=== PATIENT | female | born 1955 | race Hispanic/Latino ===

== ENCOUNTER → 2020-10-17 | Day surgery (SDC) | payer MEDICARE ==
[2020-10-13 16:04] LABS: BASOPHILS # (AUTO) 0.1 (0.0-0.1); BASOPHILS % 0.9 % (0.0-1.0); EOSINOPHILS # (AUTO) 0.3 (0.0-0.4); EOSINOPHILS % 3.8 % (0.0-6.0); HEMATOCRIT 40.8 % (34.2-44.1); HEMOGLOBIN 13.4 g/dL (12.0-16.0); LYMPHOCYTES # (AUTO) 1.9 (1.0-3.2); LYMPHOCYTES % 24.8 % (18.0-39.1); MEAN CORPUSCULAR HEMOGLOBIN 31.5 pg (28-32); MEAN CORPUSCULAR HGB CONC 32.8 g/dL (31-35); MONOCYTES # (AUTO) 0.6 (0.2-0.8); MONOCYTES % 8.6 % (4.4-11.3); NEUTROPHILS # (AUTO) 4.6 (2.1-6.9); NEUTROPHILS % 61.4 % (38.7-80.0); PLATELET COUNT 128 x10e3/uL (140-360); RED BLOOD COUNT 4.25 x10e6/uL (3.6-5.1); RED CELL DISTRIBUTION WIDTH 13.4 % (11.7-14.4)
[2020-10-13 16:12] LABS: INR 0.99; PARTIAL THROMBOPLASTIN TIME 26.4 seconds (23.8-35.5); PROTHROMBIN TIME 13.6 seconds (11.9-14.5)
[2020-10-13 16:19] LABS: ALANINE AMINOTRANSFERASE 80 IU/L (0-55); ALBUMIN 3.9 g/dL (3.5-5.0); ALBUMIN/GLOBULIN RATIO 0.9 (0.8-2.0); ALKALINE PHOSPHATASE 97 IU/L (40-150); ANION GAP 12.7 mmol/L (8-16); BLOOD UREA NITROGEN 16 mg/dL (7-26); BUN/CREATININE RATIO 20 (6-25); CALCIUM 9.4 mg/dL (8.4-10.2); CARBON DIOXIDE 25 mmol/L (22-29); CHLORIDE 108 mmol/L (98-107); CREATININE, SERUM 0.81 mg/dL (0.57-1.11); EST GLOMERULAR FILTRATION RATE > 60 ML/MIN (60-); GLUCOSE 84 mg/dL (74-118); POTASSIUM 4.7 mmol/L (3.5-5.1); SODIUM 141 mmol/L (136-145)
--- NOTE | 2020-10-13 16:29 | Diagnostic Imaging Report ---
Exam: CHEST 2 VIEWS Date: 10/13/2020 4:25 PM INDICATION: ^[id number] ^1600 ^PRE OP Comparison: None FINDINGS: Lines/Tubes:None Lungs:The lungs are well inflated. No focal consolidation or pulmonary edema. Pleura:No pleural effusion. No pneumothorax. Heart/Mediastinum:The cardiomediastinal silhouette is normal in size and contour. Atherosclerotic calcifications of the aortic arch are noted. Bones/Soft Tissues: No acute osseous abnormality. Upper abdomen: Cholecystectomy clips are noted in the right upper quadrant. No free air is identified in the upper abdomen. IMPRESSION: Negative for acute intrathoracic process. Signed by: Lev Agosto MD on 10/13/2020 4:26 PM
[~2020-10-17] MED LIST: AMLODIPINE BESYL5 MG PO; BUPIVACAINE 0.25% 30ML SDV ONE; BUSPIRONE HCL5 MG PO; CEFAZOLIN SOD 1 GM/NS 50ML 50 ML IV ONE; FENTANYL CITRATE/PF 100MCG/2 ML INJ ONE; LIDOCAINE 1% W/EPINEPHRINE 20 ML VIAL ONE; LORAZEPAM PO; MIDAZOLAM HCL 2 MG/2 ML VIAL ONE; PROTONIX20 MG PO; TEMAZEPAM15 MG PO; ULTRAM50 MG PO
--- NOTE | 2020-10-17 07:46 | Operative Report ---
DATE OF PROCEDURE: 10/17/2020 SURGEON: Mir Damon MD DIRECTOR OF PARKS AND RECREATION: Raj Restrepo PA-C PREOPERATIVE DIAGNOSIS: Left elbow recurrent olecranon bursitis. POSTOPERATIVE DIAGNOSIS: Left elbow recurrent olecranon bursitis. PROCEDURE: Excision left elbow olecranon bursa. INDICATIONS: The patient is a 65-year-old lady, who has recurrent left olecranon bursitis. The findings and options have been discussed. She would like to have this surgically removed. The risks and benefits were explained. All of her questions were answered. She states she understands and wishes to proceed. DESCRIPTION OF PROCEDURE: The patient was brought to the operating room and placed under general anesthetic. Her left upper extremity was prepped and draped in a sterile manner. A preoperative time-out was performed. The extremity was exsanguinated and a proximal tourniquet was inflated to 250 mmHg. An incision was made directly over the left elbow olecranon bursa. The bursal sac was carefully dissected out. This was densely adherent to the triceps insertion and the undersurface of the skin. Clear yellow fluid was decompressed from the bursa. The bursa was circumferentially excised and sent to pathology. The wound was thoroughly irrigated. The skin was closed with subcuticular Vicryl and a running nylon stitch. A sterile bandage and a posterior splint were applied. There was no blood loss and all needle and sponge counts were correct. Mir Damon MD DR/OMAR /[id number]
[2020-10-17 08:25] VITALS: BP 128/74
== END | disposition home or self-care (01) ==
LOC: OR 05:24
PROVIDERS: ATTEND Specialist
DX: M70.22 Olecranon bursitis, left elbow (principal); I10 Essential (primary) hypertension; K21.9 Gastro-esophageal reflux disease without esophagitis; R06.02 Shortness of breath; F41.9 Anxiety disorder, unspecified; Z72.0 Tobacco use; Z88.6 Allergy status to analgesic agent; Z01.810 Encounter for preprocedural cardiovascular examination; Z01.812 Encounter for preprocedural laboratory examination; Z01.818 Encounter for other preprocedural examination; Z20.828 Contact with and (suspected) exposure to other viral communicable diseases; Z86.19 Personal history of other infectious and parasitic diseases
CPT/HCPCS: 24105; 36415; 71046; 80053; 85025; 85610; 85730; 88304; 93005; J0690; J2250; J3010; U0002

== ENCOUNTER 2021-01-02 05:34 | Observation (INO) | payer MEDICARE ==
[~2021-01-02] VITALS: Ht 154.9 cm; Wt 51.3 kg
[~2021-01-02 05:34] MED LIST changes: -BUPIVACAINE 0.25% 30ML SDV ONE; -CEFAZOLIN SOD 1 GM/NS 50ML 50 ML IV ONE; -FENTANYL CITRATE/PF 100MCG/2 ML INJ ONE; -LIDOCAINE 1% W/EPINEPHRINE 20 ML VIAL ONE; +LOSARTAN POTAS100 MG PO; -MIDAZOLAM HCL 2 MG/2 ML VIAL ONE
[2021-01-02] MEDS ORDERED: GABAPENTIN 300 MG CAP ONE (06:23)
[2021-01-02] MEDS ORDERED: CEFAZOLIN SOD 1 GM/NS 50ML 100 ML IV ONE (06:23)
[2021-01-02] MEDS ORDERED: DEXAMETHASONE SOD PHOS 10 MG/1 ML VIAL ONE (06:23)
[2021-01-02] MEDS ORDERED: CELECOXIB 200 MG CAP ONE (06:23)
[2021-01-02] MEDS ORDERED: BUPIVACAINE 7.5MG/ML /DEXTROSE 82.5MG/ML 2 ML AMP INJ ONE (06:24)
[2021-01-02] MEDS ORDERED: SODIUM CHLORIDE 0.9% 500ML 500 ML ONE (06:34)
[2021-01-02] MEDS ORDERED: VANCOMYCIN HCL 1,000 MG ONE (06:34)
[2021-01-02] MEDS ORDERED: TRANEXAMIC ACID 1,000 MG/10 ML ML ONE (06:35)
[2021-01-02] MEDS ORDERED: ROPIVACAINE 246.25 MG, EPINEPHRINE HCL 1:1000 1ML 0.5 MG, CLONIDINE HCL 0.08 MG, KETORO... INJ ONE ×5 (07:00)
[2021-01-02] MEDS: SODIUM CHLORIDE 0.9% 1000ML 1,000 ML IV SCH ×2 (09:45→19:45)
[2021-01-02] MEDS ORDERED: DIPHENHYDRAMINE HCL INJ 50 MG/ML VIAL IV PRN (09:45)
[2021-01-02] MEDS ORDERED: ONDANSETRON HCL INJ 2MG/ML 2ML 2 MG/ML VIAL IV PRN (09:45)
[2021-01-02] MEDS ORDERED: KETOROLAC TROMETHAMINE 30 MG/ML VIAL IV PRN (09:45)
[2021-01-02] MEDS ORDERED: DOCUSATE SODIUM 100 MG CAP PO PRN (09:45)
[2021-01-02] MEDS ORDERED: ACETAMINOPHEN 650 MG SUPP PR PRN (09:45)
[2021-01-02] MEDS ORDERED: HYDROCODONE/APAP 5MG-325MG TAB PO PRN (09:45)
[2021-01-02 11:00] VITALS: BP 103/49
[2021-01-02 11:05] VITALS: BP 98/51
[2021-01-02] MEDS ORDERED: ONDANSETRON HCL INJ 2MG/ML 2ML 2 MG/ML VIAL ONE (13:23)
[2021-01-02] MEDS ORDERED: PROPOFOL IV EMULSION 10 MG/ML 20 ML VIAL ONE (13:23)
[2021-01-02] MEDS ORDERED: DEXAMETHASONE SOD PHOS INJ 4 MG/ML VIAL ONE (13:23)
[2021-01-02] MEDS ORDERED: LIDOCAINE HCL 2% LOCAL INJ 5 ML SDV VIAL INJ ONE (13:23)
[2021-01-02] MEDS ORDERED: EPHEDRINE SULFATE INJ 50 MG/ML VIAL ONE (13:23)
[2021-01-02] MEDS: CEFAZOLIN SOD 1 GM/NS 50ML 50 ML IV SCH ×2 (14:36→22:26)
[2021-01-02 14:39] VITALS: BP 93/49
[2021-01-02] MEDS ORDERED: CELECOXIB 100 MG CAP PO SCH (17:00)
[2021-01-02] MEDS: ASPIRIN 325 MG TAB PO SCH (17:37)
[2021-01-02 20:00] VITALS: BP 103/53
[2021-01-02] MEDS ORDERED: ZOLPIDEM TARTRATE 5 MG TAB PO PRN (21:00)
[2021-01-02 21:06] VITALS: BP 103/53
[2021-01-02] MEDS: HYDROCODONE/APAP 7.5MG-325MG 1 EA TAB PO PRN ×2 (21:58→22:28)
[2021-01-02 23:00] VITALS: BP 104/61
[2021-01-02] MEDS ORDERED: ACETAMINOPHEN 1000 MG/100 ML 100 ML IV ONE (23:07)
[2021-01-03] MEDS: HYDROCODONE/APAP 7.5MG-325MG 1 EA TAB PO PRN ×3 (03:15→08:28)
[2021-01-03 04:00] VITALS: BP 121/66
[2021-01-03 05:17] LABS: HEMATOCRIT 35.1 % (34.2-44.1); HEMOGLOBIN 11.3 g/dL (12.0-16.0)
[2021-01-03] MEDS: SODIUM CHLORIDE 0.9% 1000ML 1,000 ML IV SCH (05:44)
[2021-01-03] MEDS: CEFAZOLIN SOD 1 GM/NS 50ML 50 ML IV SCH (05:44)
[2021-01-03] MEDS ORDERED: PANTOPRAZOLE SOD 40 MG TABEC PO SCH (07:30)
[2021-01-03 07:52] VITALS: BP 119/64
[2021-01-03 07:53] VITALS: BP 119/64
[2021-01-03] MEDS: ASPIRIN 325 MG TAB PO SCH (08:28)
[2021-01-03] MEDS ORDERED: CELECOXIB 200 MG CAP PO SCH (09:00)
[2021-01-03] MEDS ORDERED: ACETAMINOPHEN 1000 MG/100 ML IV PRN (09:45)
[2021-01-03 11:47] VITALS: BP 105/92
[2021-01-03] MEDS ORDERED: ONDANSETRON HCL 4 MG ORAL DISINTEGRATING TAB PO PRN (12:15)
[2021-01-03] MEDS ORDERED: BUSPIRONE HCL 5 MG TAB PO SCH (21:00)
== END 2021-01-03 12:20 | disposition home or self-care (01) ==
LOC: OR 05:34 → PACU V 09:40 → MED/SURG 10:42
PROVIDERS: ADMIT Specialist; ATTEND Specialist
DX: M16.11 Unilateral primary osteoarthritis, right hip (principal); Z96.642 Presence of left artificial hip joint; Z88.5 Allergy status to narcotic agent; I10 Essential (primary) hypertension; D64.9 Anemia, unspecified; K21.9 Gastro-esophageal reflux disease without esophagitis; Z86.19 Personal history of other infectious and parasitic diseases
CPT/HCPCS: 27130; 36415; 72170; 85014; 85018; 86850; 86900; 86920; 97116 ×2; 97139; 97162; 97530; C1713 ×2; C1776 ×3; G0378 ×2; J0131 ×2; J0171; J0690 ×2; J1100 ×2; J1885; J2001; J2405; J2704; J2795; J3370; J7030; J7040; S0164; U0002